=== PATIENT | male | born 1940 | race African-American/Black ===

== ENCOUNTER 2020-01-20 18:55 | Emergency (ER) | payer MEDICARE, MEDICAID ==
[~2020-01-20] VITALS: Ht 160 cm; Wt 63.5 kg
[2020-01-20 20:23] LABS: Basophils # (auto) 0.1 10 ^3/uL (0-0.2); Basophils % (auto) 1.4 % (0.0-2.0); Eosinophils # (auto) 0.1 10 ^3/uL (0-0.8); Hematocrit 39.8 % (41.0-53.0); Hemoglobin 13.1 g/dL (13.5-17.5); Lymphocytes # (auto) 1.1 10 ^3/uL (0.4-5.4); Lymphocytes % (auto) 22.7 % (10.0-50.0); Mean Corpuscular Hemoglobin 30.2 pg (28.0-32.0); Mean Corpuscular Hgb Conc. 32.8 g/dL (32.0-36.0); Monocytes # (auto) 0.6 10 ^3/uL (0-1.3); Neutrophils % (auto) 60.9 % (37.0-80.0); Nucleated Red Blood Cells % 0.1 %; Platelet Count (auto) 269 10^3/uL (140-450); Red Blood Cells 4.33 10^6/uL (4.5-5.90); White Blood Cell 4.9 10^3/uL (4.4-10.8)
[2020-01-20 20:39] LABS: Alanine Aminotransferase 15 U/L (16-61); Albumin 3.5 g/dL (3.4-5.0); Amylase 104 U/L (25-115); Anion Gap 6 (5-15); Aspartate Aminotransferase 13 U/L (15-37); Blood Urea Nitrogen 6 mg/dL (7-18); Calcium 8.4 mg/dL (8.5-10.1); Carbon Dioxide 26 mmol/L (21-32); Chloride 108 mmol/L (98-107); GFR African American 130 mL/min; GFR Non-African American 107 mL/min; Glucose 90 mg/dL (74-106); Lipase 224 U/L (73-393); Potassium 3.3 mmol/L (3.5-5.1); Sodium 140 mmol/L (136-145)
[2020-01-20 20:41] LABS: Urine WBC None Seen /hpf (0 - 3)
[2020-01-20 20:42] LABS: Alkaline Phosphatase 67 U/L (45-117); Bilirubin, Total 0.5 mg/dL (0.2-1.0); Total Protein 7.2 g/dL (6.4-8.2)
[2020-01-20 20:59] LABS: Urine Bacteria NONE SEEN /hpf (None Seen); Urine Blood Negative /uL (Negative); Urine Specific Gravity 1.002 (1.001-1.035)
[2020-01-21] MEDS ORDERED: POTASSIUM CHL 20 Meq TABLET PO ONE (00:45)
[2020-01-21] MEDS ORDERED: HYDROcodone-ACET 10/325MG TAB PO ONE (01:00)
[2020-01-21] MEDS ORDERED: ONDANSETRON ODT 4 MG TAB PO ONE (01:00)
[2020-01-21] MEDS ORDERED: SODIUM CHLORIDE 0.9% 1,000 ML IV ONE (01:45)
[2020-01-21] MEDS ORDERED: MORPHINE SULF INJ 2 MG/ML SYRINGE 1ML IV ONE (01:45)
[2020-01-21] MEDS ORDERED: ONDANSETRON HCL 4 MG/2 ML VIAL IV ONE (01:45)
[2020-01-21 04:15] VITALS: BP 86/38
[2020-01-25] MEDS ORDERED: ZOLP10TA6 PO (15:34)
[2020-01-25] MEDS ORDERED: DICY20TA PO (15:34)
[2020-01-25] MEDS ORDERED: DIPH25CA66 PO (15:34)
[2020-01-25] MEDS ORDERED: HYDR-531 PO (15:34)
[2020-01-25] MEDS ORDERED: CARV3.1240 PO (15:34)
[2020-01-25] MEDS ORDERED: ALBUAER3 IN (15:34)
[2020-01-25] MEDS ORDERED: ALEN1TAB32 PO (15:34)
[2020-01-25] MEDS ORDERED: MELO1TAB56 PO (15:34)
[2020-01-25] MEDS ORDERED: TAMS0.4C36 PO (15:34)
[2020-01-25] MEDS ORDERED: ROFL1TAB2 PO (15:34)
[2020-01-25] MEDS ORDERED: SUCR1SUS10 PO (15:34)
[2020-01-25] MEDS ORDERED: DOCU100T15 PO (15:34)
[2020-01-25] MEDS ORDERED: OMEP20TA PO (15:34)
== END 2020-01-21 04:24 | disposition home or self-care (01) ==
LOC: ER 18:57
DX: K42.9 Umbilical hernia without obstruction or gangrene (principal); K40.90 Unilateral inguinal hernia, without obstruction or gangrene, not specified as recurrent; E87.6 Hypokalemia; N20.0 Calculus of kidney; R11.2 Nausea with vomiting, unspecified; M88.9 Osteitis deformans of unspecified bone; J98.11 Atelectasis; I10 Essential (primary) hypertension; J44.9 Chronic obstructive pulmonary disease, unspecified; N40.0 Benign prostatic hyperplasia without lower urinary tract symptoms
CPT/HCPCS: 36415; 71045; 74176; 80053; 81001; 82150; 83690; 85025; 93005; 93926; 96361; 96374; 96375; 99285; J2270; J2405

== ENCOUNTER 2020-01-27 09:26 | Inpatient (IN) | payer MEDICARE, MEDICAID ==
[2020-01-25 16:15] LABS: Basophils # (auto) 0.1 10 ^3/uL (0-0.2); Basophils % (auto) 2.1 % (0.0-2.0); Eosinophils # (auto) 0.1 10 ^3/uL (0-0.8); Eosinophils % (auto) 2.6 % (0.0-7.0); Hemoglobin 13.1 g/dL (13.5-17.5); Lymphocytes # (auto) 1.2 10 ^3/uL (0.4-5.4); Lymphocytes % (auto) 26.5 % (10.0-50.0); Mean Corpuscular Hemoglobin 30.2 pg (28.0-32.0); Mean Corpuscular Hgb Conc. 32.8 g/dL (32.0-36.0); Mean Corpuscular Volume 92.2 fL (80.0-100.0); Monocytes # (auto) 0.6 10 ^3/uL (0-1.3); Monocytes % (auto) 14.4 % (0.0-12.0); Neutrophils # (auto) 2.4 10 ^3/uL (1.6-8.6); Neutrophils % (auto) 54.4 % (37.0-80.0); Nucleated Red Blood Cells % 0.1 %; Platelet Count (auto) 261 10^3/uL (140-450); Red Blood Cells 4.34 10^6/uL (4.5-5.90); Red Cell Distribution Width 13.9 % (11.8-14.3); White Blood Cell 4.4 10^3/uL (4.4-10.8)
[2020-01-25 16:26] LABS: Albumin 3.5 g/dL (3.4-5.0); Calcium 8.7 mg/dL (8.5-10.1); Potassium 4.1 mmol/L (3.5-5.1)
[2020-01-25 16:29] LABS: BUN/Creatinine Ratio 8.8
[2020-01-25 16:34] LABS: INR 1.07 (0.9-1.15); Partial Thromboplastin Time 29.5 sec (23.64-32.05)
[2020-01-25 16:40] LABS: Bilirubin, Total 0.4 mg/dL (0.2-1.0)
[~2020-01-27] VITALS: Ht 163.8 cm; Wt 63.5 kg
[~2020-01-27 09:26] MED LIST: ALBUAER3 IN; ALEN1TAB32 PO; CARV3.1240 PO; DICY20TA PO; DIPH25CA66 PO; DOCU100T15 PO; HYDR-531 PO; MELO1TAB56 PO; OMEP20TA PO; ROFL1TAB2 PO; SUCR1SUS10 PO; TAMS0.4C36 PO; ZOLP10TA6 PO
[2020-01-27] MEDS ORDERED: ceFAZolin 1GM/50ML 50 ML IV ONE (10:50)
[2020-01-27] MEDS ORDERED: BUPIVACAINE 0.25% INJ 50ML VIAL ONE (12:18)
[2020-01-27] MEDS ORDERED: BUPIVACAINE W/ EPINEPH 0.25% INJ 50ML MDV ONE (12:18)
[2020-01-27] MEDS ORDERED: fentaNYL CITRATE 100 MCG/2 ML VL ONE (12:53)
[2020-01-27] MEDS ORDERED: MEPERIDINE HCL (50 MG/ML) 1 ML VIAL ONE (12:53)
[2020-01-27] MEDS ORDERED: MIDAZOLAM HCL 1MG/1ML-2 ML VIAL ONE (12:54)
[2020-01-27] MEDS ORDERED: PROPOFOL 10 MG/ML 20 ML IV ONE (13:12)
[2020-01-27] MEDS ORDERED: DexAMETHasone SOD PHOS 10MG/1ML VIAL INJ ONE (13:12)
[2020-01-27] MEDS ORDERED: POVIDONE IODINE 10 % TOPICAL OINT 30GM TOP ONE (13:46)
[2020-01-27] MEDS ORDERED: MORPHINE SULFATE 4 MG/ML SYR/VIAL IV PRN (14:00)
[2020-01-27] MEDS ORDERED: LABETALOL HCL 5 MG/ML 4ML SYRINGE IV PRN (14:00)
[2020-01-27] MEDS ORDERED: ONDANSETRON HCL 4 MG/2 ML VIAL IV PRN (14:00)
[2020-01-27] MEDS ORDERED: ePHEDrine SULFATE 50 MG/ML AMP IV PRN (14:00)
[2020-01-27] MEDS ORDERED: MIDAZOLAM HCL 1MG/1ML-2 ML VIAL IV PRN (14:00)
[2020-01-27] MEDS ORDERED: D5W/SOD CHL 0.45%/KCL 20MEQ 1,000 ML IV ONE (14:30)
[2020-01-27] MEDS: HYDROmorphone HCL 2 MG/ML VL IV PRN ×6 (14:46→22:58)
[2020-01-27] MEDS ORDERED: MORPHINE SULF INJ 2 MG/ML SYRINGE 1ML IV PRN (15:30)
[2020-01-27] MEDS ORDERED: NITROGLYCERIN 0.4 MG SL TAB SL PRN (15:30)
[2020-01-27] MEDS: SODIUM CHLORIDE 0.9% 1,000 ML IV SCH (15:30)
--- NOTE | 2020-01-27 16:05 | NUR ---
Telemetry admit from OR GETACHEW GARBER admitted to Telemetry unit after SBAR received from RICK Sharp. Patient oriented to CORBIN HUBER RN primary RN, unit, room, bed, and unit policies regarding patient care and visiting hours. Patient now on continuous telemetry monitoring, tele box #25 and telemetry reading on arrival to unit is NSR @ 65BPM. Patient placed on bedside oxygen @ 4L N/C, weighed by bedscale and encouraged to call if they need something. Bed in lowest/locked position, bed rails up x2, call light within reach. No s/s of distress, sob, no c/o pain at this time. Dressing to medial anterior abdomen c/d/i, abdominal binder in place, SCDs placed. All questions and concerns addressed, patient verbalized understanding.
[2020-01-27 16:30] VITALS: BP 150/82
[2020-01-27] MEDS: ALBUTEROL SULF 2.5 MG/0.5ML(0.5%) NEB SOLN NEB SCH (18:46)
[2020-01-27] MEDS: IPRATROPIUM BROM 0.5 MG/2.5ML INH SOL NEB SCH (18:46)
[2020-01-27 18:51] VITALS: BP 150/82
--- NOTE | 2020-01-27 20:00 | NUR ---
Opening Shift Note Assumed care of patient. Awake, alert and oriented x4. Patient complaining of pain in abdomen 10/10. Will medicate for pain as ordered. Abdominal binder in in place with a dressing to the medial anterior abdomen that is clean, dry and intact with minimal serous sanguinous drainage seen. SCD's are in place. Nasal cannula is on at 4L. Bed locked, in lowest position, call light within reach, side rails up x2. Instructed on POC and to call for assist PRN. Will continue to monitor for changes Q1hr and PRN.
[2020-01-27] MEDS: LABETALOL HCL 5 MG/ML 4ML SYRINGE IV PRN (21:04)
--- NOTE | 2020-01-27 22:00 | NUR ---
Hospitalist paged Pt is requesting something to help him sleep. Awaiting reply back
[2020-01-27] MEDS: ceFAZolin 1GM/50ML 50 ML IV SCH (22:57)
--- NOTE | 2020-01-28 00:04 | NUR ---
Hospitalist paged Pt needing something to help him sleep
--- NOTE | 2020-01-28 00:58 | NUR ---
Call back from hospitalist New orders received
[2020-01-28] MEDS ORDERED: TEMAZEPAM 15 MG CAP PO ONE (01:00)
[2020-01-28] MEDS: SODIUM CHLORIDE 0.9% 1,000 ML IV SCH ×2 (03:58→17:06)
[2020-01-28] MEDS: HYDROmorphone HCL 2 MG/ML VL IV PRN ×5 (03:59→21:26)
[2020-01-28 05:41] VITALS: BP 144/87
[2020-01-28 05:59] LABS: Basophils # (auto) 0 10 ^3/uL (0-0.2); Basophils % (auto) 0.2 % (0.0-2.0); Eosinophils # (auto) 0 10 ^3/uL (0-0.8); Eosinophils % (auto) 0.1 % (0.0-7.0); Hematocrit 40.6 % (41.0-53.0); Hemoglobin 13.4 g/dL (13.5-17.5); Lymphocytes # (auto) 1.1 10 ^3/uL (0.4-5.4); Lymphocytes % (auto) 9.5 % (10.0-50.0); Mean Corpuscular Hemoglobin 30.4 pg (28.0-32.0); Mean Corpuscular Hgb Conc. 32.9 g/dL (32.0-36.0); Mean Corpuscular Volume 92.5 fL (80.0-100.0); Monocytes # (auto) 0.9 10 ^3/uL (0-1.3); Monocytes % (auto) 8.4 % (0.0-12.0); Neutrophils # (auto) 9.1 10 ^3/uL (1.6-8.6); Neutrophils % (auto) 81.8 % (37.0-80.0); Nucleated Red Blood Cells % 0.1 %; Platelet Count (auto) 260 10^3/uL (140-450); Red Cell Distribution Width 13.8 % (11.8-14.3); White Blood Cell 11.2 10^3/uL (4.4-10.8)
[2020-01-28 06:09] LABS: Potassium 4.1 mmol/L (3.5-5.1)
[2020-01-28] MEDS: ceFAZolin 1GM/50ML 50 ML IV SCH ×3 (06:10→21:52)
[2020-01-28 06:16] LABS: BUN/Creatinine Ratio 8.7; Calcium 8.9 mg/dL (8.5-10.1)
--- NOTE | 2020-01-28 08:02 | NUR ---
Patient is very anxious, stated his stomach pain level at 10/10 at this time. Dilaudid Inj 1 mg given for severe pain.
[2020-01-28 08:20] VITALS: BP 161/86
[2020-01-28] MEDS: ALBUTEROL SULF 2.5 MG/0.5ML(0.5%) NEB SOLN NEB SCH ×3 (08:25→18:28)
[2020-01-28] MEDS: IPRATROPIUM BROM 0.5 MG/2.5ML INH SOL NEB SCH ×3 (08:26→18:28)
[2020-01-28 08:52] VITALS: BP 161/86
[2020-01-28] MEDS: FAMOTIDINE (10MG/ML) 2ML VL IV SCH (09:34)
[2020-01-28] MEDS: LABETALOL HCL 5 MG/ML 4ML SYRINGE IV PRN ×3 (09:41→22:46)
--- NOTE | 2020-01-28 09:41 | NUR ---
SBP = 161/86, Heart rate = 72. Labetalol Inj 10 mg given for SBP>160.
--- NOTE | 2020-01-28 10:56 | NUR ---
Dr. Murillo came over. made aware patient is still complaining of severe pain when awake, falls asleep when given Dilaudid. Patient on NPO.
--- NOTE | 2020-01-28 11:20 | NUR ---
BP = 153/91, Heart rate = 68, O2 Sat = 92% on O2 at 4 LPM. Patient is anxious, complaining of pain when awake.
--- NOTE | 2020-01-28 12:00 | NUR ---
Patient stated he has not passed gas yet.
--- NOTE | 2020-01-28 12:08 | NUR ---
Patient stated his stomach pain level at 10/10. Dilaudid Inj 1mg PRN given for severe pain as ordered.
[2020-01-28 12:40] VITALS: BP 164/89
--- NOTE | 2020-01-28 12:46 | NUR ---
BP = 164/89, Heart rate = 68. Labetalol 20 mg IVP given for SBP>150 PRN as ordered.
--- NOTE | 2020-01-28 14:15 | NUR ---
Patient stated he has not passed gas yet.
--- NOTE | 2020-01-28 14:20 | NUR ---
BP = 152/75, Heart rate = 64, RR = 17, O2 Sat = 98% on O2 at 4LPM.
[2020-01-28 16:19] VITALS: BP 156/97
--- NOTE | 2020-01-28 16:21 | NUR ---
Patient stated his stomach pain level at 10/10 at this time. Dilaudid Inj 1mg PRN given for severe pain.
--- NOTE | 2020-01-28 17:00 | NUR ---
PT REFUSED P.T. BECAUSE OF ABDOMEN PAIN.
--- NOTE | 2020-01-28 17:53 | NUR ---
RT NOTE PT WAS SEEN BY RT FOR HHN TX. PT TOLERATES WELL VIA MASK. NO ADVERSE REACTION NOTED. PT WAS FOUND ON 4L NASAL CANNULA, TITRATED TO 3L POST TX. PT WEARS 2L AT HOME. CONT ORDERED Addendum: 01/28/20 at 1853 by Francesca Bull RT Amended: Links added.
--- NOTE | 2020-01-28 19:45 | NUR ---
Assumed care of patient, awake and alert x4. Dressing to medial abdominal incision has minimal serosanguineous drainage, abdominal binder over it in place.No S/S of distress/SOB or pain. Call light is within reach. Instructed on POC and to call for assist PRN, will continue to monitor for changes Q1hr and PRN.
--- NOTE | 2020-01-28 21:26 | NUR ---
Patient is complaining of 10/0-10 pain to the abdomen. Dilaudid given as ordered for severe pain, will reassess.
--- NOTE | 2020-01-28 21:56 | NUR ---
Patient states pain level is now a 7 but it is getting better and he feels alright. Will continue to monitor.
[2020-01-28 22:00] VITALS: BP 166/106
--- NOTE | 2020-01-28 22:46 | NUR ---
BP elevated 170/105, labetalol given as ordered, will reassess.
[2020-01-29] VITALS (7 sets, daily range): BP systolic 121–172; BP diastolic 74–105
--- NOTE | 2020-01-29 | NUR ---
BP is now 159/91, will continue to monitor.
--- NOTE | 2020-01-29 01:28 | NUR ---
Patient is complaining of 9/0-10 pain to the abdomen. Dilaudid given as ordered for severe pain, will reassess.
[2020-01-29] MEDS: HYDROmorphone HCL 2 MG/ML VL IV PRN ×6 (01:29→23:15)
--- NOTE | 2020-01-29 01:58 | NUR ---
Patient states pain level is now a 6/0-10, it is okay enough for him to try and sleep.
--- NOTE | 2020-01-29 02:17 | NUR ---
BP is now 147/92, HR is 68. Patient is resting in bed, call light is within reach.
--- NOTE | 2020-01-29 03:14 | NUR ---
Patient is resting in bed asleep, no S/S of distress or pain noted. Will continue to monitor. Addendum: 01/30/20 at 0553 by NKECHI ALFARO RN wrong date 01/30/20 not 01/29/20
[2020-01-29] MEDS: LABETALOL HCL 5 MG/ML 4ML SYRINGE IV PRN ×3 (05:15→16:24)
--- NOTE | 2020-01-29 05:16 | NUR ---
BP elevated, labetalol given as ordered. BP is 162/105 and HR is 68. Will reassess.
[2020-01-29 05:17] LABS: Basophils # (auto) 0.1 10 ^3/uL (0-0.2); Eosinophils # (auto) 0.2 10 ^3/uL (0-0.8); Eosinophils % (auto) 3.1 % (0.0-7.0); Hematocrit 41.8 % (41.0-53.0); Hemoglobin 13.7 g/dL (13.5-17.5); Lymphocytes # (auto) 1.1 10 ^3/uL (0.4-5.4); Lymphocytes % (auto) 14.7 % (10.0-50.0); Mean Corpuscular Hemoglobin 29.8 pg (28.0-32.0); Mean Corpuscular Hgb Conc. 32.9 g/dL (32.0-36.0); Mean Corpuscular Volume 90.8 fL (80.0-100.0); Monocytes # (auto) 0.8 10 ^3/uL (0-1.3); Neutrophils # (auto) 5.1 10 ^3/uL (1.6-8.6); Neutrophils % (auto) 70.2 % (37.0-80.0); Nucleated Red Blood Cells % 0.1 %; Platelet Count (auto) 269 10^3/uL (140-450); Red Cell Distribution Width 13.9 % (11.8-14.3); White Blood Cell 7.2 10^3/uL (4.4-10.8)
[2020-01-29 05:36] LABS: BUN/Creatinine Ratio 10.7; Calcium 8.8 mg/dL (8.5-10.1); Potassium 3.9 mmol/L (3.5-5.1)
[2020-01-29] MEDS: IPRATROPIUM BROM 0.5 MG/2.5ML INH SOL NEB SCH ×3 (05:58→18:27)
[2020-01-29] MEDS: ALBUTEROL SULF 2.5 MG/0.5ML(0.5%) NEB SOLN NEB SCH ×3 (05:58→18:26)
[2020-01-29] MEDS: ceFAZolin 1GM/50ML 50 ML IV SCH ×3 (06:20→21:51)
--- NOTE | 2020-01-29 06:21 | NUR ---
BP is now 153/94 HR is 69, will continue to monitor.
[2020-01-29] MEDS: SODIUM CHLORIDE 0.9% 1,000 ML IV SCH ×2 (07:30→20:50)
--- NOTE | 2020-01-29 07:36 | NUR ---
Urine sample collected and sent to lab via [facility] system.
--- NOTE | 2020-01-29 08:00 | NUR ---
Opening Shift Note Assumed care of patient, awake and alert. No S/S of distress/SOB, 5/10 incisional abdominal pain. With mid abdominal incision covered with dressing, abdominal binder reapplied. Instructed on POC and to call for assist PRN, will continue to monitor for changes Q1hr and PRN.
[2020-01-29 08:10] LABS: Urine Bacteria NONE SEEN /hpf (None Seen); Urine Blood Negative /uL (Negative); Urine Specific Gravity 1.011 (1.001-1.035); Urine WBC <1 /hpf (0 - 3)
[2020-01-29] MEDS: FAMOTIDINE (10MG/ML) 2ML VL IV SCH (10:08)
--- NOTE | 2020-01-29 19:30 | NUR ---
Opening Shift Note Assumed care of patient, awake and alert x4. No S/S of distress/SOB or pain. Call light is within reach, side rails up x2, bed is in the lowest position, fall precautions are in place. Dressing to the abdomen is intact with moderate serosanguineous drainage noted, abdominal binder is in place. Instructed on POC and to call for assist PRN, will continue to monitor for changes Q1hr and PRN.
[2020-01-29] MEDS: ONDANSETRON HCL 4 MG/2 ML VIAL IV PRN (20:46)
--- NOTE | 2020-01-29 20:46 | NUR ---
Patient is complaining of pain to the abdomen 9/0-10, Dilaudid 1 mg given as ordered will reassess.
--- NOTE | 2020-01-29 20:46 | NUR ---
Patient states he is feeling nauseous and feels like he is going to get sick. Zofran given as ordered, will continue to monitor.
--- NOTE | 2020-01-29 21:16 | NUR ---
Patient states his nausea is gone and he feels better.
--- NOTE | 2020-01-29 21:16 | NUR ---
Patient states pain level is now a 9/0-10 but he feels like it is getting better. Call light is within reach will continue to monitor.
--- NOTE | 2020-01-29 23:15 | NUR ---
Patient is complaining of pain to the abdomen 9/0-10, Dilaudid 0.5 mg given as ordered will reassess.
--- NOTE | 2020-01-29 23:45 | NUR ---
Patient is resting in bed asleep, no S/S of distress or pain noted. Will continue to monitor.
[2020-01-30] MEDS: HYDROmorphone HCL 2 MG/ML VL IV PRN ×4 (02:44→18:19)
--- NOTE | 2020-01-30 02:44 | NUR ---
Patient is complaining of pain to the abdomen 10/0-10, Dilaudid 1 mg given as ordered will reassess.
--- NOTE | 2020-01-30 03:14 | NUR ---
Patient is resting in bed asleep, no S/S of distress or pain noted. Will continue to monitor.
[2020-01-30 05:00] VITALS: BP 149/54
[2020-01-30] MEDS: ceFAZolin 1GM/50ML 50 ML IV SCH ×3 (05:48→21:45)
[2020-01-30] MEDS: ONDANSETRON HCL 4 MG/2 ML VIAL IV PRN ×2 (05:48→16:44)
--- NOTE | 2020-01-30 05:48 | NUR ---
Patient is complaining of feeling like he is going to get sick, Zofran given as ordered will continue to monitor.
--- NOTE | 2020-01-30 06:00 | NUR ---
IS given to pt. He was educated on use of IS. He verbalized understanding and gave a return demonstration. Will continue to reinforce use of IS.
--- NOTE | 2020-01-30 06:18 | NUR ---
Pt.s nausea resolved pt. resting in bed call light with in reach.
[2020-01-30] MEDS: ALBUTEROL SULF 2.5 MG/0.5ML(0.5%) NEB SOLN NEB SCH ×3 (07:24→18:49)
[2020-01-30] MEDS: IPRATROPIUM BROM 0.5 MG/2.5ML INH SOL NEB SCH ×3 (07:24→18:50)
--- NOTE | 2020-01-30 07:40 | NUR ---
Opening Note Received report from duke zaidi RN. Patient is awake, alert and oriented x4. No signs or symptoms of distress noted at this time. Patient states he is short of breath. RT at bedside completing breathing treatment. Patient oxygen saturation 93% on 2L NC. Patient states abdominal pain 10/10, will medicate per orders. Reviewed plan of care with patient, patient verbalized understanding. Patient is NPO at this time. Bed in low and locked position, call light within reach. Will continue to monitor Q1 hour and PRN.
--- NOTE | 2020-01-30 08:08 | NUR ---
Dr. Maggie Almonte at bedside Discussing plan of care with patient and this RN. New orders received. Will continue to monitor Q1 hour and PRN.
[2020-01-30 09:00] VITALS: BP 139/97
[2020-01-30] MEDS: FAMOTIDINE (10MG/ML) 2ML VL IV SCH (09:12)
--- NOTE | 2020-01-30 10:20 | NUR ---
Physical therapy Patient ambulated with physical therapy. Patient sitting up in chair at bedside. Patient instructed to call when ready to get back in to bed. Call light within reach. Will continue to monitor Q1 hour and PRN.
--- NOTE | 2020-01-30 12:16 | NUR ---
Nutrition Assessment Notes please see attached link for complete assessment Est Energy needs BW 63 [id number] kcals (25-30 kcal/kgBW), Est Protein needs: 63-75 gms/day (1.0-1.2 gm/kgBW). Will continue to monitor and reassess prn. Addendum: 01/30/20 at [address] Amended: Links added.
[2020-01-30 13:00] VITALS: BP 126/97
[2020-01-30] MEDS: SODIUM CHLORIDE 0.9% 1,000 ML IV SCH ×2 (14:25→23:30)
[2020-01-30 16:45] VITALS: BP 148/95
--- NOTE | 2020-01-30 19:20 | NUR ---
Closing note Report given to night coordinator RN. No signs or symptoms of distress noted at this time.
[2020-01-30 19:22] VITALS: BP 148/95
--- NOTE | 2020-01-30 19:25 | NUR ---
Opening Shift Note Assumed care of patient, awake and alert X4. No S/S of distress/SOB or pain. Dressing to medial abdomen is dry and intact with moderate drainage noted. Abdominal binder is in place. Abdomen is tender and firm to palpation. Instructed on use of IS, patient verbalized understanding and gave a return demonstration. Call light is within reach, side rails up x2, bed is in the lowest position. Instructed on POC and to call for assist PRN. All questions and concerns answered, will continue to monitor for changes Q1hr and PRN. Bed locked in lowest position with two side rails up and call light in reach.
[2020-01-30 22:00] VITALS: BP 141/96
[2020-01-31] MEDS: HYDROmorphone HCL 2 MG/ML VL IV PRN ×5 (00:25→21:22)
--- NOTE | 2020-01-31 00:25 | NUR ---
Patient is complaining of pain to the abdomen 10/0-10, 1 mg Dilaudid administered as ordered, will reassess.
--- NOTE | 2020-01-31 00:55 | NUR ---
Patient is now resting in bed asleep, no S/S of pain noted. Call light is within reach.
[2020-01-31] MEDS: ONDANSETRON HCL 4 MG/2 ML VIAL IV PRN ×2 (04:58→21:23)
--- NOTE | 2020-01-31 04:59 | NUR ---
Patient is complaining of pain to the abdomen 9/0-10 and nausea, Zofran and Dilaudid administered as ordered, will reassess.
[2020-01-31 05:00] VITALS: BP 130/88
[2020-01-31] MEDS: ceFAZolin 1GM/50ML 50 ML IV SCH ×3 (05:39→21:21)
--- NOTE | 2020-01-31 05:40 | NUR ---
Patient states no more nausea and his pain level is now a 5/0-10, "It is good."
[2020-01-31] MEDS: IPRATROPIUM BROM 0.5 MG/2.5ML INH SOL NEB SCH ×4 (06:36→19:28)
[2020-01-31] MEDS: ALBUTEROL SULF 2.5 MG/0.5ML(0.5%) NEB SOLN NEB SCH ×3 (06:36→18:00)
--- NOTE | 2020-01-31 07:25 | NUR ---
Opening Note Received report from sew out operator RN. Patient is awake, alert and oriented x4. Patient states abdominal pain 8/. Patient repositioned for comfort. Patient is on 2L NC, respirations even and unlabored. Patient instructed to use incentive spirometry. Reviewed plan of care with patient, patient verbalized understanding. Bed in low and locked position, call light within reach. Will continue to monitor Q1 hour and PRN.
[2020-01-31] MEDS: FAMOTIDINE (10MG/ML) 2ML VL IV SCH (08:51)
[2020-01-31 09:00] VITALS: BP 126/82
[2020-01-31] MEDS: SODIUM CHLORIDE 0.9% 1,000 ML IV SCH ×2 (09:05→21:23)
--- NOTE | 2020-01-31 12:00 | NUR ---
Physical therapy Patient ambulating in hallway with physical therapy.
[2020-01-31 13:00] VITALS: BP 143/85
--- NOTE | 2020-01-31 14:41 | NUR ---
Pain Patient complains of abdominal pain 9/10 and is requesting pain medications. Will medicate per orders. Will continue to monitor Q1 hour and PRN.
--- NOTE | 2020-01-31 15:11 | NUR ---
Pain reassessment Patient resting comfortably in bed. No signs or symptoms of distress noted at this time. Bed in low and locked position, call light within reach. Will continue to monitor Q1 hour and PRN.
[2020-01-31 17:00] VITALS: BP 145/82
--- NOTE | 2020-01-31 19:00 | NUR ---
Closing Note Report given to strike planning applications RN. No signs or symptoms of distress.
--- NOTE | 2020-01-31 19:15 | NUR ---
Opening shift note Assumed care of patient who is A&Ox4. Respirations even without s/s of distress. RT bedside at this time administering breathing treatment. Discussed POC and NPO status with patient who verbalized understanding. NS running at 75, IV patent and intact. Bed in lowest locked position with 2 side rails up. Call light within reach, will continue to monitor.
--- NOTE | 2020-01-31 20:50 | NUR ---
Engineering contacted regarding bed malfunction Bed unresponsive to outlet, no power. Utilized red plugs and overhead light plugs without function.
--- NOTE | 2020-01-31 21:10 | NUR ---
Engineering bedside for bed maintenance
--- NOTE | 2020-01-31 21:15 | NUR ---
Pain Patient c/o 04/14 pain. Administered 1 mg Dilaudid and 4 mg Zofran per EMAR. Will continue to monitor.
--- NOTE | 2020-01-31 21:20 | NUR ---
TCDB/Splinting Patient having difficulty expelling secretions with audible congestion. Educated patient on splinting techniques along with coughing and deep breathing in order to promote the clearance of secretions. Patient returned the demonstration and was able to produce a large amount of brown, thick mucous. Patient tolerated well without c/o abdominal pain or further congestion. Will continue to monitor.
--- NOTE | 2020-01-31 21:52 | NUR ---
All plugs/bed controls now functioning Patient placed in position of comfort.
[2020-01-31 22:00] VITALS: BP 154/88
--- NOTE | 2020-01-31 22:00 | NUR ---
Pain reassessed Patient sleeping with respirations even and non-labored and no s/s of distress. Will continue to monitor.
[2020-02-01] MEDS: ONDANSETRON HCL 4 MG/2 ML VIAL IV PRN ×2 (02:40→18:00)
[2020-02-01] MEDS: HYDROmorphone HCL 2 MG/ML VL IV PRN ×5 (02:40→22:20)
--- NOTE | 2020-02-01 02:54 | NUR ---
Pain Patient c/o 9/10 abdominal pain. Administered 1 mg Dilaudid and 4 mg Zofran per EMAR. Will continue to monitor.
--- NOTE | 2020-02-01 04:02 | NUR ---
Pain reassessed Patient sleeping with respirations even and non-labored with no s/s of distress. Will continue to monitor.
[2020-02-01 05:00] VITALS: BP 142/75
[2020-02-01] MEDS: ceFAZolin 1GM/50ML 50 ML IV SCH (05:11)
--- NOTE | 2020-02-01 06:42 | NUR ---
Pain Patient c/o 8/10 abdominal pain. Administered 1 mg Dilaudid per EMAR. Will continue to monitor.
--- NOTE | 2020-02-01 07:20 | NUR ---
Closing shift note Patient resting, no s/s of distress. Endorsed care to day shift RN.
[2020-02-01] MEDS: ALBUTEROL SULF 2.5 MG/0.5ML(0.5%) NEB SOLN NEB SCH ×3 (07:23→18:53)
[2020-02-01 08:30] VITALS: BP 125/79
[2020-02-01] MEDS: FAMOTIDINE (10MG/ML) 2ML VL IV SCH (09:26)
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
--- NOTE | 2020-02-01 11:05 | NUR ---
PT SEEN BY DR. GALVEZ HE ORDERED CLEAR LIQUID DIET AND FULL LIQUID FOR DINNER IF PT TOLERATES CLEAR LIQUID. NOTED PT IS COUGHING AND WHEEZING, PER DR. GALVEZ HE WILL TAKE CARE OF IT. DR. GALVEZ IS AWARE PT HAD BM 2 TIMES YESTERDAY AND LAST NIGHT.
[2020-02-01] MEDS ORDERED: POTASSIUM CHL 20 Meq TABLET PO ONE (11:15)
[2020-02-01] MEDS ORDERED: FUROSEMIDE 20 MG/2 ML VIAL IV ONE (11:15)
[2020-02-01] MEDS ORDERED: levoFLOXacin 500 MG TAB PO ONE (11:15)
--- NOTE | 2020-02-01 11:20 | NUR ---
DR. MILLER MADE AWARE PT HAD BM 2 TIMES YESTERDAY AND LAST NIGHT, HE SAID TO CANCEL BOWEL SERIES ORDER.
[2020-02-01] MEDS: IPRATROPIUM BROM 0.5 MG/2.5ML INH SOL NEB SCH ×2 (11:54→18:53)
[2020-02-01] MEDS: LABETALOL HCL 5 MG/ML 4ML SYRINGE IV PRN (12:05)
[2020-02-01 12:42] VITALS: BP 184/90
--- NOTE | 2020-02-01 15:46 | NUR ---
Nutrition Followup Note Wt 66.6kg Pt was with care team at time of rounds. Pt diet advanced to clear liquid 01/31, per MD note if pt tolerates clear liq pt to advance to full liquid at dinner on 01/31. Will continue to monitor pt diet advance. Est Energy needs BW 63 [id number] kcals (25-30 kcal/kgBW), Est Protein needs: 63-75 gms/day (1.0-1.2 gm/kgBW). Will continue to monitor and reassess prn. Labs: Alb 3.5 WNL BM: None noted Skin: BS 18 low risk, full details in career information specialist doc PES: Inadequate PO intake r.t current GI condition aeb pt`s npo POST HERNIA REPAIR Comments 1) Advance diet as medically feasible 2) consider PN support to meet > 75% of needs if pt continues to be NPO and GI is not accessible 3) continue current plan of care Expected Outcomes/Goals: pt will have improved labs F/u high 2-3 days
--- NOTE | 2020-02-01 16:14 | NUR ---
RE-ASSESSMENT K 9 HANDLER/ DEPUTY FAXED PACKET TO [facility] PER SS CONSULT FOR HOME HEALTH SAFETY EVAL, PT EXPRESSED NO PREFERENCE IN HH. K 9 HANDLER/ DEPUTY CONFIRMED WITH [facility] PACKET WAS RECEIVED, PT WAS ACCEPTED. K 9 HANDLER/ DEPUTY UPDATED BEDSIDE RN. NO OTHER SS NEEDS. SS TO REMAIN AVAILABLE NEEDED.
[2020-02-01 16:55] VITALS: BP 138/84
[2020-02-01] MEDS: HYDROcodone-ACET 10/325MG TAB PO PRN (17:48)
[2020-02-01] MEDS: TAMSULOSIN HYDROCHLORIDE 0.4 MG CAP PO SCH (18:42)
--- NOTE | 2020-02-01 19:15 | NUR ---
Opening shift note Assumed care of patient who is A&Ox4, respirations even and non-labored with no s/s of distress. Discussed POC with patient who verbalized understanding. Bed in lowest locked position with 2 side rails up. Call light within reach. Will continue to monitor.
[2020-02-01 22:00] VITALS: BP 129/76
[2020-02-01] MEDS: guaiFENesin 200 MG/10 ML UD PO PRN (22:20)
--- NOTE | 2020-02-01 22:23 | NUR ---
Pain Patient requesting pain medication for 7/10 abdominal pain. Administered 0.5 mg Dilaudid per EMAR. Will continue to monitor.
--- NOTE | 2020-02-01 22:50 | NUR ---
Pain reassessed Patient stated that his pain level has decreased to a 4/10 and that he feels better. Will continue to monitor.
[2020-02-02] MEDS: ONDANSETRON HCL 4 MG/2 ML VIAL IV PRN ×2 (00:10→07:00)
--- NOTE | 2020-02-02 00:10 | NUR ---
Patient having nausea Administered 4 mg Zofran per EMAR. Will continue to monitor.
[2020-02-02 05:00] VITALS: BP 139/80
[2020-02-02 06:22] LABS: Hematocrit 37.1 % (41.0-53.0); Hemoglobin 12.3 g/dL (13.5-17.5); Mean Corpuscular Hemoglobin 30.2 pg (28.0-32.0); Mean Corpuscular Hgb Conc. 33.2 g/dL (32.0-36.0); Mean Corpuscular Volume 90.7 fL (80.0-100.0); Platelet Count (auto) 218 10^3/uL (140-450); Red Blood Cells 4.09 10^6/uL (4.5-5.90); Red Cell Distribution Width 13.9 % (11.8-14.3); White Blood Cell 4.1 10^3/uL (4.4-10.8)
[2020-02-02] MEDS: ALBUTEROL SULF 2.5 MG/0.5ML(0.5%) NEB SOLN NEB SCH ×3 (06:27→18:54)
[2020-02-02] MEDS: IPRATROPIUM BROM 0.5 MG/2.5ML INH SOL NEB SCH ×3 (06:27→18:54)
[2020-02-02 06:43] LABS: Potassium 3.6 mmol/L (3.5-5.1)
[2020-02-02 06:48] LABS: Band Neutrophils % (manual) 0
[2020-02-02 06:49] LABS: Basophils % (manual) 0 (0.0-2.0); Blast Cells 0; Metamyelocytes % 0; Myelocytes % 0; Promyelocytes % 0; Reactive Lymphocytes 0
[2020-02-02 06:55] LABS: BUN/Creatinine Ratio 24.1; Calcium 8.6 mg/dL (8.5-10.1)
[2020-02-02] MEDS: HYDROmorphone HCL 2 MG/ML VL IV PRN ×3 (07:00→21:00)
[2020-02-02 07:13] LABS: Eosinophils % (manual) 4 (0-7); Lymphocytes % (manual) 22 (10.0-50.0); Monocytes % (manual) 20 (0-12)
--- NOTE | 2020-02-02 07:15 | NUR ---
Closing shift note Patient resting without s/s of distress. Endorsed care to day shift RNEsthela.
[2020-02-02] MEDS: guaiFENesin 200 MG/10 ML UD PO PRN ×3 (07:56→21:01)
[2020-02-02 09:09] VITALS: BP 137/79
[2020-02-02] MEDS: levoFLOXacin 500 MG TAB PO SCH (09:22)
[2020-02-02] MEDS: FAMOTIDINE 20 MG TAB PO SCH (09:22)
[2020-02-02] MEDS: HYDROcodone-ACET 10/325MG TAB PO PRN ×2 (09:23→16:24)
[2020-02-02] MEDS ORDERED: levoFLOXacin 500 MG TAB PO SCH (10:00)
[2020-02-02] MEDS ORDERED: BUDESONIDE (INHALATION) 0.5 MG/2 ML NEB NEB ONE (10:15)
[2020-02-02] MEDS ORDERED: methylPREDNISolone SOD SUCC 40 MG/ML VL IV ONE (10:15)
[2020-02-02 13:50] VITALS: BP 128/65
[2020-02-02 16:22] VITALS: BP 151/82
--- NOTE | 2020-02-02 17:40 | NUR ---
Sleeping pill request Patient is requesting something to help him sleep. He said he has not been sleeping well here at night. This nurse paged the on-call doctor.
[2020-02-02] MEDS: TAMSULOSIN HYDROCHLORIDE 0.4 MG CAP PO SCH (18:08)
[2020-02-02] MEDS ORDERED: LORazepam 0.5 MG TAB PO PRN (18:30)
[2020-02-02] MEDS: BUDESONIDE (INHALATION) 0.5 MG/2 ML NEB NEB SCH (18:54)
[2020-02-02] MEDS: methylPREDNISolone SOD SUCC 40 MG/ML VL IV SCH (21:00)
[2020-02-02 22:00] VITALS: BP 129/79
[2020-02-03 03:31] VITALS: BP 151/82
[2020-02-03 05:00] VITALS: BP 116/77
[2020-02-03] MEDS: IPRATROPIUM BROM 0.5 MG/2.5ML INH SOL NEB SCH ×2 (07:05→12:45)
[2020-02-03] MEDS: ALBUTEROL SULF 2.5 MG/0.5ML(0.5%) NEB SOLN NEB SCH ×2 (07:05→12:45)
[2020-02-03] MEDS: BUDESONIDE (INHALATION) 0.5 MG/2 ML NEB NEB SCH (07:10)
[2020-02-03 09:00] VITALS: BP 144/75
[2020-02-03] MEDS: HYDROcodone-ACET 10/325MG TAB PO PRN (09:10)
[2020-02-03] MEDS: guaiFENesin 200 MG/10 ML UD PO PRN (09:30)
[2020-02-03] MEDS: levoFLOXacin 500 MG TAB PO SCH (10:15)
[2020-02-03] MEDS: methylPREDNISolone SOD SUCC 40 MG/ML VL IV SCH (10:15)
[2020-02-03] MEDS: FAMOTIDINE 20 MG TAB PO SCH (10:15)
--- NOTE | 2020-02-03 12:59 | NUR ---
At bedside for bela ny. Physical therapy came it to address pt's bent walking cane, SUSTAINABILITY COMMUNICATOR said cane is unsafe for use, should contact social work supervisor to obtain a new one before pt goes home. Notified RICK Proctor.
--- NOTE | 2020-02-03 13:13 | NUR ---
SS - CANE BENT Patient stated his cane was bent while staying at this hospital. This nurse contacted P.T. to see if they could fix it. They said it would not be safe to bend the cane back. This nurse contacted and asked if we replace it or if home health will. They came and took a look at it and saw the patient. They notified this nurse that HH will be replacing the cane for the patient.
--- NOTE | 2020-02-03 14:17 | NUR ---
Discharge Went over discharge paperwork with patient. P.T. brought patient a new cane and threw away the old one that was broken during his stay here. Pt removed his own IV. This nurse removed telemetry box and sent to ICU per hospital protocol. Prescriptions given to patient, which he said he would fill at [facility]. Dressing applied to abdomen per pt request. No drainage noted. Pt instructed about calling Dr. Rondon for follow up visit. Patient was taken down in wheelchair with all personal belongings to [facility]. He said he wanted to wait for his ride downstairs. Addendum: 02/03/20 at 1423 by CORBIN MARY RN After patient was already discharged and left, an appointment was made with Dr. Rondon. Pt had been instructed to call for an appointment when going over discharge paperwork.
== END 2020-02-03 14:20 | disposition home or self-care (01) | DRG 227 ==
LOC: SUR 09:26 → CENTRAL 16:12 → TELE-CENTR 16:23
PROVIDERS: ADMIT Surgery; ATTEND Internal Medicine
PROC: 0WQF0ZZ Repair Abdominal Wall, Open Approach (ICD-10-PCS; principal; 2020-01-27 12:50)
DX: K43.9 Ventral hernia without obstruction or gangrene (principal); J96.20 Acute and chronic respiratory failure, unspecified whether with hypoxia or hypercapnia; K56.7 Ileus, unspecified; J44.1 Chronic obstructive pulmonary disease with (acute) exacerbation; I10 Essential (primary) hypertension; N40.0 Benign prostatic hyperplasia without lower urinary tract symptoms; G89.29 Other chronic pain; K66.0 Peritoneal adhesions (postprocedural) (postinfection); K40.90 Unilateral inguinal hernia, without obstruction or gangrene, not specified as recurrent; F17.210 Nicotine dependence, cigarettes, uncomplicated; Z03.818 Encounter for observation for suspected exposure to other biological agents ruled out
CPT/HCPCS: 36415; 71045; 74176; 80048; 80053; 81001; 85007; 85025; 85027; 85610; 85730; 94640; G0378; J0690; J1100; J2250; J2405; J2704; J3490

== ENCOUNTER 2020-03-08 16:13 | Inpatient (IN) | payer MEDICARE, MEDICAID ==
[~2020-03-08] VITALS: Ht 177.8 cm; Wt 64.2 kg
[2020-03-08 17:18] LABS: Basophils # (auto) 0 10 ^3/uL (0-0.2); Basophils % (auto) 0.6 % (0.0-2.0); Eosinophils # (auto) 0.1 10 ^3/uL (0-0.8); Eosinophils % (auto) 2.2 % (0.0-7.0); Hematocrit 39.4 % (41.0-53.0); Hemoglobin 12.6 g/dL (13.5-17.5); Lymphocytes # (auto) 1.6 10 ^3/uL (0.4-5.4); Lymphocytes % (auto) 32.7 % (10.0-50.0); Mean Corpuscular Hemoglobin 29.3 pg (28.0-32.0); Mean Corpuscular Hgb Conc. 31.9 g/dL (32.0-36.0); Mean Corpuscular Volume 91.6 fL (80.0-100.0); Monocytes # (auto) 0.6 10 ^3/uL (0-1.3); Monocytes % (auto) 12.7 % (0.0-12.0); Neutrophils # (auto) 2.6 10 ^3/uL (1.6-8.6); Neutrophils % (auto) 51.8 % (37.0-80.0); Nucleated Red Blood Cells % 0.1 %; Platelet Count (auto) 280 10^3/uL (140-450); Red Blood Cells 4.29 10^6/uL (4.5-5.90); Red Cell Distribution Width 14.3 % (11.8-14.3)
[2020-03-08 17:32] LABS: Albumin 3.5 g/dL (3.4-5.0); Calcium 8.7 mg/dL (8.5-10.1); Potassium 3.7 mmol/L (3.5-5.1)
[2020-03-08 17:34] LABS: BUN/Creatinine Ratio 15.8
[2020-03-08 17:36] LABS: Bilirubin, Total 0.5 mg/dL (0.2-1.0); Total Protein 7.2 g/dL (6.4-8.2)
[2020-03-08 17:40] LABS: INR 1.06 (0.9-1.15); Partial Thromboplastin Time 28.9 sec (23.0-31.2)
[2020-03-08] MEDS ORDERED: cefTRIAXone 1GM/50ML D5W 50 ML IV ONE (18:45)
[2020-03-08] MEDS ORDERED: SODIUM CHLORIDE 0.9% 500 ML IV ONE (18:45)
[2020-03-08] MEDS ORDERED: MORPHINE SULF INJ 2 MG/ML SYRINGE 1ML IV ONE (18:45)
[2020-03-08] MEDS ORDERED: ONDANSETRON HCL 4 MG/2 ML VIAL IV ONE (18:45)
[2020-03-08] MEDS ORDERED: NITROGLYCERIN 0.4 MG SL TAB SL PRN ×2 (19:15→22:15)
[2020-03-08] MEDS ORDERED: MORPHINE SULF INJ 2 MG/ML SYRINGE 1ML IV PRN ×2 (19:15→22:15)
[2020-03-08] MEDS ORDERED: ceFAZolin 1GM/50ML 50 ML IV ONE (22:15)
[2020-03-08] MEDS ORDERED: HYDROcodone-ACET 5/325MG TAB PO PRN (22:15)
[2020-03-08] MEDS ORDERED: IPRATROPIUM BROM 0.5 MG/2.5ML INH SOL NEB PRN (22:15)
[2020-03-08] MEDS ORDERED: ONDANSETRON HCL 4 MG/2 ML VIAL IV PRN (22:15)
[2020-03-08] MEDS ORDERED: diphenhdrAMINE HCL 25 MG CAP PO PRN (22:15)
[2020-03-08] MEDS ORDERED: ALBUTEROL SULF 2.5 MG/0.5ML(0.5%) NEB SOLN NEB PRN (22:15)
[2020-03-08] MEDS ORDERED: ACETAMINOPHEN 325 MG TAB PO PRN (22:15)
[2020-03-08] MEDS ORDERED: LORazepam 0.5 MG TAB PO PRN (22:15)
[2020-03-08] MEDS: SUCRALFATE 1 GM/10 ML ORAL SUSP PO SCH (22:33)
[2020-03-08] MEDS: MORPHINE SULF INJ 2 MG/ML SYRINGE 1ML IV PRN (22:33)
[2020-03-08 22:59] VITALS: BP 139/81
--- NOTE | 2020-03-08 23:00 | NUR ---
Telemetry admit from ER GETACHEW GARBER admitted to Telemetry unit. Patient oriented to Chata Hendricks, primary RN, unit, room, bed, and unit policies regarding patient care and visiting hours. Patient now on continuous telemetry monitoring, tele box #73 and telemetry reading on arrival to unit is sinus rythm. Patient placed on bedside oxygen, weighed by bedscale and encouraged to call if they need something. All questions and concerns addressed, patient verbalized understanding.
[2020-03-08 23:06] LABS: Cholesterol 129 mg/dL (< 200)
[2020-03-08 23:10] LABS: HDL Cholesterol 50 mg/dL (40-59); LDL Cholesterol 76 mg/dL (< 100); Triglycerides 79 mg/dL (< 150)
[2020-03-08] MEDS: SODIUM CHLORIDE 0.9% 1,000 ML IV SCH (23:34)
[2020-03-08] MEDS: DOCUSATE SOD 100 MG CAP PO PRN (23:39)
[2020-03-08] MEDS ORDERED: FERR-7 PO (23:45)
[2020-03-09 01:48] VITALS: BP 139/81
--- NOTE | 2020-03-09 03:16 | NUR ---
URINE SENT TO LAB PER ORDERS.
[2020-03-09 03:24] LABS: Urine Bacteria NONE SEEN /hpf (None Seen); Urine Blood Negative /uL (Negative); Urine Specific Gravity 1.014 (1.001-1.035); Urine WBC 2 /hpf (0 - 3)
[2020-03-09 03:49] LABS: Alcohol, Urine < 3.0 mg/dL (0-10); Amphetamine Screen, Urine NEGATIVE (NEGATIVE); Barbiturate Scree,Urine NEGATIVE (NEGATIVE); Benzodiazephine Screen, Urine NEGATIVE (NEGATIVE); Cannabinoid Screen, Urine NEGATIVE (NEGATIVE); Cocaine Screen, Urine NEGATIVE (NEGATIVE); Opiate Scree,Urine POSITIVE (NEGATIVE); Phencyclidine Screen, Urine NEGATIVE (NEGATIVE)
[2020-03-09 04:57] VITALS: BP 112/72
[2020-03-09] MEDS: ceFAZolin 1GM/50ML 50 ML IV SCH ×3 (06:06→21:36)
[2020-03-09] MEDS: DICYCLOMINE HCL 10 MG CAP PO SCH ×4 (06:06→21:36)
[2020-03-09] MEDS: SUCRALFATE 1 GM/10 ML ORAL SUSP PO SCH ×4 (06:35→21:37)
[2020-03-09] MEDS: MORPHINE SULF INJ 2 MG/ML SYRINGE 1ML IV PRN ×3 (06:43→21:38)
--- NOTE | 2020-03-09 06:50 | NUR ---
Respiratory note: ASSESSED PT FOR PRN MED NEB AT THIS TIME, PT DENIES SOB, NO RESP DISTRESS NOTED, NO TX INDICATED. PULSE OX 99% ON 2LNC, HR 66, RR 18, BILATERAL BS CLEAR.
--- NOTE | 2020-03-09 07:30 | NUR ---
Opening Shift Note Assumed care of patient, who is alert and oriented x4. Noted respirations to be even and unlabored. No S/S of distress/SOB or pain. Patient has bulging of skin at the left inguinal area that is tender to touch. 20g IV to R FA infusing NS at 60 ml/hr. Bed is low, locked with 2x side rails up. Call light is within reach. Instructed on POC and to call for assist PRN, will continue to monitor for changes Q1hr and PRN.
[2020-03-09 07:35] LABS: Basophils # (auto) 0 10 ^3/uL (0-0.2); Eosinophils # (auto) 0.1 10 ^3/uL (0-0.8); Eosinophils % (auto) 2.4 % (0.0-7.0); Hematocrit 37.5 % (41.0-53.0); Hemoglobin 12.2 g/dL (13.5-17.5); Lymphocytes # (auto) 1.4 10 ^3/uL (0.4-5.4); Lymphocytes % (auto) 32.9 % (10.0-50.0); Mean Corpuscular Hemoglobin 29.4 pg (28.0-32.0); Mean Corpuscular Hgb Conc. 32.4 g/dL (32.0-36.0); Mean Corpuscular Volume 90.7 fL (80.0-100.0); Monocytes # (auto) 0.6 10 ^3/uL (0-1.3); Monocytes % (auto) 13.4 % (0.0-12.0); Neutrophils # (auto) 2.2 10 ^3/uL (1.6-8.6); Neutrophils % (auto) 50.3 % (37.0-80.0); Nucleated Red Blood Cells % 0.1 %; Platelet Count (auto) 244 10^3/uL (140-450); Red Blood Cells 4.14 10^6/uL (4.5-5.90); Red Cell Distribution Width 14.2 % (11.8-14.3); White Blood Cell 4.4 10^3/uL (4.4-10.8)
[2020-03-09 07:48] LABS: INR 1.07 (0.9-1.15); Partial Thromboplastin Time 29.6 sec (23.0-31.2)
[2020-03-09 07:52] LABS: Potassium 3.7 mmol/L (3.5-5.1)
[2020-03-09 08:00] LABS: BUN/Creatinine Ratio 14.9; Bilirubin, Total 0.3 mg/dL (0.2-1.0); Calcium 8.4 mg/dL (8.5-10.1); Magnesium 2.1 mg/dL (1.6-2.6); Total Protein 6.3 g/dL (6.4-8.2)
[2020-03-09 08:59] VITALS: BP 123/77
[2020-03-09] MEDS: CARVEDILOL 3.125 MG TAB PO SCH ×2 (10:00→21:37)
[2020-03-09] MEDS: FAMOTIDINE 20 MG TAB PO SCH ×2 (10:00→21:37)
[2020-03-09] MEDS ORDERED: LIDOCAINE W/ EPINEPHRINE 1% 20ML VIAL ONE (11:11)
[2020-03-09] MEDS ORDERED: LIDOCAINE 1% HCL (LOCAL ANESTH.) INJ 20ML MDV ONE (11:11)
[2020-03-09] MEDS ORDERED: BUPIVACAINE 0.25% INJ 50ML VIAL ONE (11:11)
[2020-03-09] MEDS ORDERED: SUCCINYLCHOLINE CHLORIDE 20 MG/ML 10ML VIAL IV ONE (11:12)
--- NOTE | 2020-03-09 11:15 | NUR ---
Patient taken to pre-op For scheduled left inguinal hernia repair with Dr. Rondon. IV to right FA patent and intact.
[2020-03-09] MEDS ORDERED: ceFAZolin 1GM/50ML 50 ML IV ONE (11:24)
[2020-03-09] MEDS ORDERED: fentaNYL CITRATE 100 MCG/2 ML VL ONE (11:32)
[2020-03-09] MEDS ORDERED: MEPERIDINE HCL (50 MG/ML) 1 ML VIAL ONE (11:33)
[2020-03-09] MEDS ORDERED: MIDAZOLAM HCL 1MG/1ML-2 ML VIAL ONE (11:33)
[2020-03-09] MEDS ORDERED: ETOMIDATE (2MG/ML) 20ML VIAL IV ONE (12:01)
[2020-03-09] MEDS ORDERED: ONDANSETRON HCL 4 MG/2 ML VIAL IV PRN (12:30)
[2020-03-09] MEDS ORDERED: MIDAZOLAM HCL 1MG/1ML-2 ML VIAL IV PRN (12:30)
[2020-03-09] MEDS ORDERED: ePHEDrine SULFATE 50 MG/ML AMP IV PRN (12:30)
[2020-03-09] MEDS ORDERED: MORPHINE SULFATE 4 MG/ML SYR/VIAL IV PRN (12:30)
[2020-03-09] MEDS ORDERED: LABETALOL HCL 5 MG/ML 4ML SYRINGE IV PRN (12:30)
[2020-03-09] MEDS ORDERED: DexAMETHasone SOD PHOS 10MG/1ML VIAL INJ ONE (12:32)
[2020-03-09] MEDS ORDERED: PROPOFOL 10 MG/ML 20 ML IV ONE (12:54)
[2020-03-09] MEDS: HYDROmorphone HCL 2 MG/ML VL IV PRN ×4 (13:26→13:56)
--- NOTE | 2020-03-09 14:25 | NUR ---
S/p L inguinal hernia repair Alert and oriented. Respirations are even and unlabored. On 2LPM O2 via nasal cannula. Noted steri-strips to L inguinal area. No bleeding noted. Bed is low, locked with 2x side rails up. Call light is with reach. Will continue to monitor Q1hr and PRN.
[2020-03-09] MEDS: SODIUM CHLORIDE 0.9% 1,000 ML IV SCH (14:48)
--- NOTE | 2020-03-09 16:51 | NUR ---
Advancing diet Patient tolerated clear liquid diet (lunch) well. Patient asked if his diet may be advanced for dinner. Per Dr. Rondon, patient needs to remain on clear liquid diet at least until breakfast tomorrow. If no nausea, then diet may be advanced to regular. Will continue to monitor.
[2020-03-09 17:00] VITALS: BP 134/90
--- NOTE | 2020-03-09 17:25 | NUR ---
Incentive spirometer Educated patient on need for incentive spirometer. Patient provided return demonstration. Encouraged patient to use I/S at least ten times every hour. Patient verbalized understanding. Will continue to monitor Q1hr and PRN.
[2020-03-09] MEDS: TAMSULOSIN HYDROCHLORIDE 0.4 MG CAP PO SCH (17:50)
--- NOTE | 2020-03-09 19:33 | NUR ---
RT NOTE: PT ASSESSED FOR PRN MED NEB TX, PT ON 2LPM NC SPO2 99%. HR 78, RR 16. BS CLEAR. PT DENIES SOB AT THIS TIME. PT NOTIFIED TO HAVE RT PAGED IF SOB OCCURS. NO TX INDICATED AT THIS TIME.
--- NOTE | 2020-03-09 19:40 | NUR ---
Opening Shift Note Assumed care of patient, awake and alert. No S/S of distress/SOB. Steri strip noted on left groin dry and intact. Noted surgical incision on abdomen open to air. Instructed on POC and to call for assist PRN, patient verbalized understanding. Safety precaution in place, call light within reach, will continue to monitor for changes Q1hr and PRN.
[2020-03-09 21:44] VITALS: BP 153/89
[2020-03-10] MEDS: DOCUSATE SOD 100 MG CAP PO PRN ×2 (01:13→11:02)
[2020-03-10] MEDS: MORPHINE SULF INJ 2 MG/ML SYRINGE 1ML IV PRN ×6 (02:15→22:33)
[2020-03-10 06:07] VITALS: BP 111/66
[2020-03-10 06:15] VITALS: BP 111/66
[2020-03-10] MEDS: ceFAZolin 1GM/50ML 50 ML IV SCH ×3 (06:47→22:33)
[2020-03-10] MEDS: SUCRALFATE 1 GM/10 ML ORAL SUSP PO SCH ×4 (06:48→22:33)
[2020-03-10] MEDS: DICYCLOMINE HCL 10 MG CAP PO SCH ×4 (06:48→22:33)
[2020-03-10] MEDS: SODIUM CHLORIDE 0.9% 1,000 ML IV SCH (07:28)
[2020-03-10 09:00] VITALS: BP 140/79
[2020-03-10] MEDS: FAMOTIDINE 20 MG TAB PO SCH ×2 (11:02→22:34)
[2020-03-10] MEDS: CARVEDILOL 3.125 MG TAB PO SCH ×2 (11:03→22:35)
[2020-03-10 13:00] VITALS: BP 124/105
--- NOTE | 2020-03-10 13:00 | NUR ---
IV leaking. IV to right forearm leaking. Swelling noted around IV access. Skin cool to touch. IV discontinued at this time using clean technique. Patient tolerated well. Patient refusing new IV insertion at this time as he is waiting for MD to see if he will get DC'd today.
--- NOTE | 2020-03-10 14:20 | NUR ---
late antibiotic Patient has no IV line at this time. Patient refusing to have IV line placed until he knows if he's going to be DC'd.
--- NOTE | 2020-03-10 15:35 | NUR ---
IV IV access obtained, via clean sterile technique by inserting 20 gauge catheter at left forearm after 1 attempt. IV secured properly. No trauma to site. Patient tolerated well. 1400 scheduled IV antibiotic started at this time. 1400 scheduled antibiotic started at this time
--- NOTE | 2020-03-10 16:05 | NUR ---
FEVER PATIENT TEMPERATURE 100.5 AT THIS TIME. PATIENT INSTRUCTED TO REMOVE SHEETS. PATIENT REFUSING HE STATES HE IS COLD. PATIENT REFUSING COOLING MEASURES. WILL MEDICATE WITH TYLENOL PER MD ORDERS AND CONTINUE TO MONITOR.
--- NOTE | 2020-03-10 17:05 | NUR ---
temperature reassessment patient no longer running a fever at this time. Current temperature 98.3. Will continue to monitor.
[2020-03-10] MEDS: TAMSULOSIN HYDROCHLORIDE 0.4 MG CAP PO SCH (17:51)
[2020-03-10 18:01] VITALS: BP 131/77
[2020-03-10 22:39] VITALS: BP 148/85
[2020-03-11] MEDS: MORPHINE SULF INJ 2 MG/ML SYRINGE 1ML IV PRN ×3 (00:46→10:10)
[2020-03-11] MEDS: SODIUM CHLORIDE 0.9% 1,000 ML IV SCH (00:46)
[2020-03-11 05:30] VITALS: BP 136/80
[2020-03-11] MEDS: SUCRALFATE 1 GM/10 ML ORAL SUSP PO SCH ×2 (05:59→12:04)
[2020-03-11] MEDS: ceFAZolin 1GM/50ML 50 ML IV SCH ×2 (05:59→14:00)
[2020-03-11] MEDS: DICYCLOMINE HCL 10 MG CAP PO SCH ×2 (05:59→12:03)
[2020-03-11 09:00] VITALS: BP 122/74
[2020-03-11] MEDS: CARVEDILOL 3.125 MG TAB PO SCH (09:31)
[2020-03-11] MEDS: FAMOTIDINE 20 MG TAB PO SCH (09:31)
--- NOTE | 2020-03-11 09:55 | NUR ---
Physician rounding Dr. Weiner at nurses station. New orders received, will follow through will continue care.
[2020-03-11] MEDS: DOCUSATE SOD 100 MG CAP PO PRN (10:10)
[2020-03-11 13:00] VITALS: BP 131/86
--- NOTE | 2020-03-11 13:27 | NUR ---
Called Dr. Rondon office Called Surgical office to schedule patient appointment. No answer, left message with patient phone number and information for call back. Provided unit extension for call back as well.
--- NOTE | 2020-03-11 13:38 | NUR ---
Saleem MUNGUIA Placed page for Dr. Rondon regarding incisional care. Awaiting call back.
[2020-03-11 13:39] VITALS: BP 131/86
--- NOTE | 2020-03-11 13:45 | NUR ---
Received call back Received call from Dr. Rondon regarding incisional care. Will provide patient with care information.
--- NOTE | 2020-03-11 15:00 | NUR ---
Discharge note Discharge instructions given as ordered. Encourage to follow up with PMD as instructed. All questions and concerns addressed. Patient verbalized understanding. IV removed with catheter intact, pressure dressing applied. Telemetry unit returned to ICU. Patient taken to vehicle via wheelchair with all personal belongings, accompanied by staff member. No distress noted at time of departure.
[2020-03-14] MEDS ORDERED: ALENDRONATE SODIUM 10 MG TAB PO SCH (10:00)
== END 2020-03-11 15:13 | disposition home or self-care (01) | DRG 228 ==
LOC: ER 16:13 → TELE 16:14 → TELE-WESTW 22:43
PROVIDERS: ADMIT Hospitalist; ATTEND Internal Medicine Pulmonary Disease
PROC: 0YQ60ZZ Repair Left Inguinal Region, Open Approach (ICD-10-PCS; principal; 2020-03-09 12:04)
DX: K40.30 Unilateral inguinal hernia, with obstruction, without gangrene, not specified as recurrent (principal); K80.20 Calculus of gallbladder without cholecystitis without obstruction; N40.0 Benign prostatic hyperplasia without lower urinary tract symptoms; I10 Essential (primary) hypertension; M85.80 Other specified disorders of bone density and structure, unspecified site; Z72.0 Tobacco use; Z79.899 Other long term (current) drug therapy; J44.9 Chronic obstructive pulmonary disease, unspecified
CPT/HCPCS: 36415; 71045; 74176; 80053; 80061; 80307; 81001; 83036; 83735; 84100; 84484; 85025; 85610; 85730; 87040; 87086; 88302; 96365; 96375; G0378; J0330; J0690; J0696; J1100; J2001; J2250; J2405; J2704; J3490